=== PATIENT | male | born 1965 | race Caucasian/White ===

== ENCOUNTER 2018-09-12 10:20 | Day surgery (SDC) | payer BC ==
[2018-09-12] MEDS ORDERED: PROPOFOL 500 MG/50 ML EMU IV ONE (11:32)
[2018-09-12 12:29] VITALS: PULSE 76
[2018-09-12 12:49] VITALS: BP 119/72; RESP 12; TEMP 97.1; O2SAT 99
== END 2018-09-12 13:20 | disposition home or self-care (01) ==
LOC: SURG 10:20
PROVIDERS: ATTEND Surgery
DX: R19.5 Other fecal abnormalities (principal); K63.5 Polyp of colon
CPT/HCPCS: 99001; J2704